=== PATIENT | male | born 1950 | race Caucasian/White ===

== ENCOUNTER 2019-12-16 05:47 | Emergency (ER) | payer MEDICARE ==
[2019-12-16] MEDS ORDERED: diphenhydrAMINE INJ 50 MG/ML VIAL IVP STA (06:16)
[2019-12-16] MEDS ORDERED: DEXAMETHASONE 10 MG/ML VIAL IVP STA (06:16)
[2019-12-16] MEDS ORDERED: SODIUM CHLORIDE INHALATION 3 ML NEB INH STA (06:16)
[2019-12-16] MEDS ORDERED: RACEPINEPHRINE 2.25% NEB INH STA (06:16)
--- NOTE | 2019-12-16 06:17 | ED Physician Documentation ---
PD HPI HEENT - Stated complaint Stated Complaint: TONGUE SWELLING - Chief complaint Chief Complaint: Allergic Rx - History obtained from History obtained from: Patient - History of Present Illness Timing - onset: How many hours ago (4) Timing - duration: Hours (4) Timing - details: Abrupt onset (With feeling of difficulty swallowing and breathing. He noted his tongue to be enlarged. It did decrease some with swallowing some water and sitting up. However continues to now with only slight improvement so here for evaluation.) Location: Other (Is enlargement of his tongue particularly to the right side. Back of the throat does not feel bad. No dental pain) Worsens: Position (feels better sitting up; worse lying back.) Associated symptoms: No: Fever, Congestion, Facial swelling (just the tongue), Cough Similar symptoms before: Has not had sx before Recently seen: Not recently seen Review of Systems Constitutional: denies: Fever, Chills Nose: denies: Rhinorrhea / runny nose, Congestion, Sinus pressure / pain Throat: denies: Dental pain / toothache, Sore throat Respiratory: denies: Cough GI: denies: Abdominal Pain, Nausea, Vomiting Skin: denies: Rash, Lesions Neurologic: denies: Generalized weakness, Focal weakness, Numbness PD PAST MEDICAL HISTORY - Past Medical History Cardiovascular: Hypertension Respiratory: None Neuro: None Endocrine/Autoimmune: None - Present Medications Home Medications: Ambulatory Orders Medication Instructions Recorded Confirmed Aspirin Chewable [St Brijesh 81 mg PO 12/16/19 Aspirin] Atorvastatin Calcium 40 mg PO 12/16/19 12/16/19 Bupropion HCl [Bupropion Xl] 150 mg PO 12/16/19 Cetirizine [ZyrTEC] 10 mg PO BID #15 tablet 12/16/19 Gabapentin 300 mg PO 12/16/19 Lisinopril/Hydrochlorothiazide 1 tab PO 12/16/19 [Lisinopril-Hctz 20-12.5 mg Tab] Metoprolol Succinate 100 mg PO 12/16/19 Sertraline [Zoloft] 50 mg PO 12/16/19 Tamsulosin [Flomax] 0.4 mg PO 12/16/19 amLODIPine [Norvasc] 5 mg PO 12/16/19 dexAMETHasone [Decadron] 4 mg PO DAILY #5 tablet 12/16/19 - Allergies Allergies/Adverse Reactions: Allergies Allergy/AdvReac Type Severity Reaction Status Date / Time No Known Drug Allergies Allergy Verified 12/16/19 05:54 PD ED PE NORMAL - Vitals Vital signs reviewed: Yes - General General: Alert and oriented X 3, Well developed/nourished, Other (Some garbling of speech and discomfort with swallowing but is able to breathe regularly without any stridor or wheezing.) - HEENT HEENT: Ears normal, Moist mucous membranes, Dentition benign. No: Pharynx benign (Posterior pharynx appears normal. The tongue is fairly swollen, particularly to the right side with boggy edema. No signs of infection per se) - Neck Neck: Supple, no meningeal sign, No adenopathy - Cardiac Cardiac: RRR, No murmur - Respiratory Respiratory: Clear bilaterally - Derm Derm: Normal color, Warm and dry - Extremities Extremities: No edema, No calf tenderness / cord - Neuro Neuro: Alert and oriented X 3, No motor deficit, Normal speech Results - Vitals Vitals: Vital Signs - 24 hr 12/16/19 12/16/19 05:48 06:38 Temperature 36.3 C L Heart Rate 56 L 53 L Respiratory 14 20 Rate Blood Pressure 123/61 O2 Saturation 96 Oxygen O2 Source Room air PD MEDICAL DECISION MAKING - ED course Complexity details: considered differential, d/w patient Departure - Departure Disposition: 01 Home, Self Care Clinical Impression: Glossal swelling, 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 The swelling like this can occur even if you have been on the medicine for a while. I would have you discontinue your lisinopril. Continue your other medicines. Add cetirizine antihistamine twice daily for a week and Decadron steroid daily for 5 days. This is because the medicine can last in your system for a while and so we want to attenuate or decrease the amount of swelling and keep it decreased. Follow-up with your primary care regarding any adjusting of your medicines. It may be that you can be without this blood pressure medicine since you are on several others anyway.
[2019-12-16 07:04] VITALS: BP 112/63
== END 2019-12-16 07:07 | disposition home or self-care (01) ==
LOC: ED 05:47
DX: T78.3XXA Angioneurotic edema, initial encounter (principal); T46.4X5A Adverse effect of angiotensin-converting-enzyme inhibitors, initial encounter; R22.0 Localized swelling, mass and lump, head; R06.00 Dyspnea, unspecified; I10 Essential (primary) hypertension; Z79.82 Long term (current) use of aspirin
CPT/HCPCS: 94640; 96374; 99283; 99284; J1200

== ENCOUNTER 2020-07-05 08:47 | Outpatient (CLI) | payer MEDICARE ==
--- NOTE | 2020-07-06 09:48 | XRAY Report ---
PROCEDURE: Knee 4 View LT INDICATIONS: L KNEE PX TECHNIQUE: 4 views of the left knee(s) were acquired. COMPARISON: None. FINDINGS: Bones: No fractures or dislocations. Mild to moderate tricompartmental osteoarthritis in left knee i s seen more prominent in medial femoral tibial compartment. No suspicious bony lesions. Soft tissues: Small to moderate joint effusion is seen. Calcifications are noted in distal patellar t endon. Vascular calcifications are seen in posterior left knee. 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 No fracture or dislocatio n. Small to moderate suprapatellar joint effusion. Calcification involving distal patella tendon sugg estive of calcific tendinitis. Reviewed by: Pradip Felipe MD on 07/06/2020 9:46 AM PDT Approved by: Pradip Felipe MD on 07/06/2020 9:46 AM PDT Station ID: [id number]
--- NOTE | 2020-07-06 09:50 | XRAY Report ---
PROCEDURE: Hips 2V BILAT INDICATIONS: BILATER HIP PX TECHNIQUE: 4 views of the hip were acquired. COMPARISON: None FINDINGS: Bones: There is prior internal fixation of left proximal femur with healed left intertrochanteric fra cture seen. Left hip alignment is anatomic. No gross hardware loosening or failure. No acute fracture or dislocation. Mild to moderate right hip joint osteoarthritic changes are seen. There is no eviden ce of avascular necrosis of femoral head. No suspicious bony lesions. The visualized pelvic ring jaden ears intact. Soft tissues: No suspicious soft tissue calcifications or masses. IMPRESSION: Prior internal fixation of left proximal femur with healed left intertrochanteric fracture. No gross hardware complication. Mild to moderate right hip joint osteoarthritis. No acute hip fracture or disl ocation. No evidence of avascular necrosis. Reviewed by: Pradip Felipe MD on 07/06/2020 9:48 AM PDT Approved by: Pradip Felipe MD on 07/06/2020 9:48 AM PDT Station ID: [id number]
== END 2020-07-05 23:59 | disposition home or self-care (01) ==
LOC: DI.N 08:47
PROVIDERS: ATTEND Orthopaedic Surgery
DX: M25.562 Pain in left knee (principal); M25.462 Effusion, left knee; M17.12 Unilateral primary osteoarthritis, left knee; M25.551 Pain in right hip; M25.552 Pain in left hip; M16.11 Unilateral primary osteoarthritis, right hip; S72.142S Displaced intertrochanteric fracture of left femur, sequela

== ENCOUNTER 2021-12-04 08:00 | Outpatient (CLI) | payer MEDICARE ==
--- NOTE | 2021-12-05 14:51 | XRAY Report ---
PROCEDURE: Knee 4 View RT INDICATIONS: RIGHT KNEE PAIN TECHNIQUE: 4 views of the right knee(s) were acquired. COMPARISON: None. FINDINGS: Bones: No fractures or dislocations. No suspicious bony lesions. Moderate right knee medial compart ment osteoarthritis. Mild right knee lateral and patellofemoral compartment osteophytosis. Soft tissues: No joint effusion. No suspicious soft tissue calcifications. IMPRESSION: Right knee tricompartmental osteoarthritis. Reviewed by: Shaye Cristobal MD, PhD on 12/05/2021 2:50 PM PDT Approved by: Shaye Cristobal MD, PhD on 12/05/2021 2:50 PM PDT Station ID: [id number]
== END 2021-12-04 23:59 | disposition home or self-care (01) ==
LOC: DI.WOS 08:00
PROVIDERS: ATTEND Physician Assistant Surgical
DX: M17.11 Unilateral primary osteoarthritis, right knee (principal)

== ENCOUNTER 2022-03-27 15:59 | Outpatient (CLI) | payer MEDICARE ==
--- NOTE | 2022-03-27 21:26 | XRAY Report ---
PROCEDURE: Knee 4 View LT INDICATIONS: LEFT KNEE PAIN TECHNIQUE: 4 views of the left knee(s) were acquired. Single frontal view of the right knee also ob tained COMPARISON: Left knee radiographs 07/05/2020 FINDINGS: Bones: No acute fracture or dislocation visualized. Severe medial compartment joint space narrowing, moderate lateral and patellofemoral compartment narrowing. Tricompartmental spurring present. Soft tissues: Small left knee joint effusion. Vascular calcifications are present. Degenerative omar nges of the right knee also present as before. IMPRESSION: 1. No acute fracture or dislocation identified. 2. Degenerative changes of the left knee redemonstrated. 3. If symptoms persist, follow-up radiographs and/or CT or MRI may be helpful for further evaluation. Reviewed by: Jhon Che MD on 03/27/2022 9:25 PM PST Approved by: Jhon Che MD on 03/27/2022 9:25 PM PST Station ID: [id number]
== END 2022-03-27 16:00 | disposition home or self-care (01) ==
LOC: DI.WOS 15:59
PROVIDERS: ATTEND Physician Assistant Surgical
DX: M17.12 Unilateral primary osteoarthritis, left knee (principal)